=== PATIENT | male | born 1950 | race Caucasian/White ===

== ENCOUNTER → 2019-05-18 11:55 | Outpatient (CLI) | payer MEDICARE, OTHER, SELFPAY ==
--- NOTE | 2019-05-18 | DI.CT.S_ITS ---
PROCEDURE: CT LE RT WO CON INDICATIONS: pain in right foot TECHNIQUE: Noncontrast 1-1.5 mm axial sections acquired from above the tibiotalar joint to the bottom of the calcaneus, with coronal and sagittal reformats. COMPARISON: [facility] [place], [place], XR FOOT 3+ VIEWS RIGHT, 04/14/2019, 14:33. [facility] [place], CR, XR TOE(S) RIGHT, 04/23/2017, 14:23. [facility] [place], CR, XR TOE(S) LEFT, 04/23/2017, 14:20. FINDINGS: Image quality: Diagnostic. Bones: Extensive postoperative changes of the right foot are identified. Extensive hindfoot fusion is identified with fusion of the subtalar joint, talonavicular joint, and calcaneocuboid joint. Obliquely oriented partially threaded screws are evident extending into the posterior subtalar joint. Obliquely oriented partially threaded screws also evident extending through the calcaneocuboid joint. A laterally applied orthopedic plate at the calcaneocuboid joint is evident. There is a medially applied orthopedic plate identified at the level of the medial border of the talus and navicular. There is an additional orthopedic plate identified extending across the 1st tarsometatarsal joint. A long headless screw is evident extending through the 1st tarsometatarsal joint. An obliquely oriented very opaque headless screw also is evident extending from the base of the 1st metatarsal to the midportion of the talus. This screw is noted to be fractured. The other headless screw involving the 1st tarsometatarsal joint could potentially represent a break of the head of the screw, which has subsequently been removed. The proximalmost screw along the more distal plate along the medial aspect of the 1st tarsometatarsal joint is noted to be fractured at the same location as the variable pitch headless screw is broken (image 132, series 4). A helical structure is evident extending from medial to lateral width in the region of the tarsonavicular joint, which probably represents a broken drill bit. Otherwise, the remainder of the orthopedic hardware is intact. There is complete bony fusion involving the talonavicular, posterior subtalar, middle subtalar, and calcaneocuboid joints. The 1st tarsometatarsal joint and appears to be open. The Lisfranc joint is fused. There are severe degenerative changes involving the other tarsometatarsal joints. Moderate degenerative changes of the metatarsophalangeal and interphalangeal joints of the foot are present. No acute fracture or dislocation is evident. No suspicious osseous lesions are identified. Prominent degenerative changes of the talonavicular joint are present. There is pes planus. An enthesophyte is evident at the Achilles tendon insertion onto the calcaneus. Soft tissues: Mild subcutaneous edema about the foot is present extensive atrophy involving the intrinsic muscles of the foot is present. No soft tissue masses or drainable fluid collections are identified. Please note that the ligamentous, tendinous, and cartilaginous structures of the foot are not adequately evaluated on CT. IMPRESSION: 1. Extensive postoperative changes related to the midfoot/hindfoot fusion. There is complete bony fusion of the talonavicular, calcaneocuboid, and subtalar joints. 2. The 1st tarsometatarsal joint line remains open and there are 2 fractured screws at the site, suggesting some degree of motion at the 1st tarsometatarsal joint line. 3. Moderate to severe degenerative changes of the foot are most pronounced involving the tibiotalar joint and the tarsometatarsal joints. 4. No acute fractures. Dictated by: Mirza Shea M.D. on 05/18/2019 at 12:30 Approved by: Mirza Shea M.D. on 05/18/2019 at 12:45
== END ==
PROVIDERS: PCP Podiatrist; Visit Provider Podiatrist
DX: M79.671 Pain in right foot (principal); M24.674 Ankylosis, right foot; Z98.1 Arthrodesis status
CPT/HCPCS: 73700

== ENCOUNTER → 2023-06-03 11:48 | Outpatient (CLI) | payer MEDICARE, OTHER, SELFPAY ==
--- NOTE | 2023-06-03 11:51 | DI.MRI.S_ITS ---
PROCEDURE: MR LUMBAR SPINE WO CON INDICATIONS: Spinal stenosis, lumbar region TECHNIQUE: Noncontrast sagittal T1 spin echo and T2 fast echo, sagittal STIR, and T2 fast spin echo through the lumbar spine. In cases with scoliosis, additional coronal T2 fast spin echo may be performed. COMPARISON: [facility] [place], CR, XR LUMBAR SPINE 2 OR 3 VIEWS, 05/26/2023, 15:24. FINDINGS: Image quality: Excellent. Alignment and Curvature: Trace retrolisthesis of L2 on L3. Bone Marrow: Marrow is of normal overall signal. No acute vertebral body compression fractures. Spinal Cord: Conus medullaris terminates at the L1-L2 level. Visualized cord demonstrates normal signal and size. Paraspinous Soft Tissues: No paravertebral masses. T12-L1: Facet hypertrophy. No canal stenosis or foraminal stenosis. L1-L2: Facet hypertrophy. Epidural lipomatosis. Borderline canal stenosis is underestimated by choice of axial scan plane. No significant foraminal narrowing. L2-L3: Minimal disc bulge. Facet hypertrophy. Somewhat prominent epidural lipomatosis posterior to the thecal sac. Nitm-zy-cewaizbj canal stenosis. Reference angled axial image 4 of series 6. No significant foraminal stenosis. L3-L4: Disc bulge. Somewhat prominent facet hypertrophy. Prominent epidural lipomatosis posterior to the sac, impinging on the posterior aspect of the sac, with resultant moderate to severe canal stenosis. Reference angled axial image 7 of series 6. [id number] foraminal stenosis. L4-L5: Disc bulge. Exuberant facet hypertrophy. Epidural lipomatosis. Moderate central canal stenosis. Urry-lu-fielpfaf right foraminal narrowing. Reference angled axial image 11 of series 6. Moderate to severe left foraminal narrowing with a degree of left foraminal L4 nerve root impingement. Reference T2 sagittal image 13 of series 2. L5-S1: Annulus tear. Disc bulge. Prominent facet hypertrophy. Borderline canal stenosis. Mild bilateral foraminal stenosis. IMPRESSION: 1. Multilevel underlying facet arthropathy, prominent at L2-L3 and L3-L4. 2. Prominent epidural lipomatosis is a factor contributing to canal stenosis at multiple levels. 3. Canal stenosis is mild to moderate at L2-L3, moderate to severe at L3-L4, moderate at L4-L5, and borderline at L5-S1. 4. There is moderate to severe left foraminal narrowing at L4-L5. At Dictated by: Theodore Rivera M.D. on 06/03/2023 at 15:58 Approved by: Theodore Rivera M.D. on 06/03/2023 at 16:06
== END ==
PROVIDERS: PCP Family Medicine; Referring Provider Orthopaedic Surgery Orthopaedic Surgery of the Spine; Visit Provider Orthopaedic Surgery Orthopaedic Surgery of the Spine
DX: M48.062 Spinal stenosis, lumbar region with neurogenic claudication (principal); M47.816 Spondylosis without myelopathy or radiculopathy, lumbar region; M47.817 Spondylosis without myelopathy or radiculopathy, lumbosacral region
CPT/HCPCS: 72148

== ENCOUNTER → 2025-03-23 14:26 | Outpatient (CLI) | payer MEDICARE, OTHER, SELFPAY ==
--- NOTE | 2025-03-23 14:30 | DI.RAD.S_ITS ---
PROCEDURE: XR LUMBAR SPINE MIN 4V INDICATIONS: BACK PAIN TECHNIQUE: 5 views of the lumbar spine were acquired, including bilateral oblique views. COMPARISON: None. FINDINGS: Bones: 5 nonrib-bearing vertebrae are present. Grade 1 retrolisthesis of L3 on L4 No vertebral body compression fractures. No suspicious bony lesions. There is multilevel facet arthropathy, worse at L4-5 and L5-S1. Multilevel disc height loss with degenerative endplate changes and spurring is present. Soft tissues: Overlying bowel gas pattern is normal. No suspicious soft tissue calcifications. Spinal cord stimulator is in place. Atherosclerotic vascular calcifications. Right upper quadrant calcification, likely a gallstone. Oblique images: No pars defects. IMPRESSION: Multilevel degenerative changes of the lumbar spine. Likely gallstone in the right upper quadrant. Dictated by: Brenden Majano M.D. on 03/25/2025 at 13:36 Approved by: Brenden Majano M.D. on 03/25/2025 at 13:37
== END ==
PROVIDERS: PCP Family Medicine; Referring Provider Pain Medicine Pain Medicine; Visit Provider Pain Medicine Pain Medicine
DX: M47.816 Spondylosis without myelopathy or radiculopathy, lumbar region (principal); M47.817 Spondylosis without myelopathy or radiculopathy, lumbosacral region; M43.16 Spondylolisthesis, lumbar region; M54.51 Vertebrogenic low back pain
CPT/HCPCS: 72110